=== PATIENT | male | born 2000 | race Caucasian/White ===

== ENCOUNTER 2018-04-18 17:40 | Emergency (ER) | payer OTHER, MEDICAID, SELFPAY ==
[2018-04-18 17:42] VITALS: BP 163/114; PULSE 131; RESP 18; TEMP 36.1; O2SAT 98; BMI 61.3
== END 2018-04-18 19:20 | disposition left against medical advice (07) ==
LOC: ED 19:50
PROVIDERS: Emergency Provider Emergency Medicine; Family Provider Pediatrics; PCP Family Medicine
DX: R69 Illness, unspecified (principal); Z53.21 Procedure and treatment not carried out due to patient leaving prior to being seen by health care provider

== ENCOUNTER 2022-06-18 16:34 | Emergency (ER) | payer MEDICAID, SELFPAY ==
[2022-06-18 16:36] VITALS: BP 149/104; PULSE 81; RESP 18; TEMP 36.4; BMI 58.6
[2022-06-18 16:39] VITALS: BP 149/104; PULSE 81; RESP 18; TEMP 36.4
--- NOTE | 2022-06-18 16:47 | CT_ITS ---
STUDY: CT ABDOMEN AND PELVIS WITH CONTRAST ENHANCEMENT OF 1713 HOURS ON 06/18/2022 REASON FOR EXAM: 21-year-old male with abdominal pain. RADIATION DOSAGE (If Supplied By Facility): CTDIvol = ( 19.44 ) mGy, DLP = ( 1901.22 ) mGycm. TECHNIQUE: Transaxial images were obtained from the dome of the diaphragm to the symphysis pubis without oral contrast. 100 mL of Isovue-300 were administered intravenously for this study. Sagittal and coronal images were reconstructed. Individualized dose optimization techniques were used for this CT. COMPARISON: None. FINDINGS: The visualized lung bases are unremarkable. Normal-sized heart for a 21-year-old. Obesity. Mild hepatomegaly with mild diffuse fatty infiltration. Normal gallbladder and extrahepatic biliary system. No cholelithiasis or cholecystitis. Normal spleen. Normal pancreas; no pancreatitis or pancreatic mass lesions.. 1.9 cm left adrenal cyst. No adrenal solid mass lesions. Normal kidneys without obstructive uropathy. No pyelonephritis. Normal visualized stomach. Normal small intestine. No constipation. No diverticulitis, colitis, obstruction. Poorly visualized, but normal-appearing appendix. No secondary findings of an appendicitis. Appendix is best visualized on coronal images 36 and 37. Normal abdominal aorta. Normal inferior vena cava. Normal retroperitoneum. No hernias or abscesses. Normal urinary bladder. Normal abdominal wall. Normal osseous structures. CT/Abdomen/Pelvis W IV Cont ONLY IMPRESSION: 1. Mild hepatomegaly with mild diffuse fatty infiltration. 2. No cholelithiasis or cholecystitis. No pancreatitis or pancreatic mass lesions. 3. Presence of a 1.9 cm left adrenal cysts. No adrenal solid mass lesions. 4. Normal kidneys without obstructive uropathy. Normal bladder. 5. No appendicitis, diverticulitis, colitis, intestinal obstruction. No constipation. 6. No hernias or abscesses. 7. Obesity. 8. No other abnormalities. Electronically Signed: Steven Sidhu MD at 17:41 EDT ,
--- NOTE | 2022-06-18 16:48 | EDS_ITS ---
HPI History of Present Illness Chief Complaint: Abd Pain Narrative Narrative: Patient presents with lower quadrant abdominal pain that started earlier today. He has no anorexia No nausea or vomiting he has no constipation. He has no urinary symptoms or testicular pain. No recent fevers or chills. PFSH PFSH Home Medications dicyclomine 20 mg tablet 20 mg PO BID #14 tabs 06/18/22 [Rx Last Taken Unknown] Allergy/AdvReac Type Severity Reaction Status Date / Time No Known Allergies Allergy Verified 04/18/18 17:43 Surgical History (Updated 06/18/22 @ 16:44 by Mackenzie Blackburn) History of ankle surgery History of tonsillectomy Social History Smoking Status: Never smoker ROS ROS ED ROS Narrative Past medical history: None Medications: None Social history: Noncontributory Review of systems: All systems negative except as indicated General: No fever Eyes: No visual changes ENT: No upper airway congestion, normal voice Neck: No neck pain Cardiovascular: No chest pain Respiratory: No shortness of breath or cough Gastrointestinal: Abdominal pain as in HPI Genitourinary: No dysuria Musculoskeletal: Denies myalgias no difficulty with ambulation Skin: No rash Neurological: No memory loss, confusion or any focal weakness Psych: No recent behavioral changes Hematologic: No easy bleeding or easy bruising EXAM Physical Exam Narrative Exam Narrative: Physical exam General: Well nourished, Well developed, he appears relatively comfortable Head: Normocephalic, Atraumatic Eyes: Conjunctiva not pale ENT: Moist mucous membranes Neck: Supple, Nontender, No lymphadenopathy Cardiovascular: Regular rate, Regular rhythm Respiratory: No distress, CTA bilaterally Abdomen: Soft, right lower quadrant abdominal pain, the abdomen is obese I am not sure if the pain is at McBurney's but it is around that region. There is no guarding or rebound. Back: Nontender, Normal Inspection. Negative for: CVA tenderness Extremities: Nontender, No edema Skin: Normal color, No rash Neurological: Alert, Normal Strength, Normal Sensation Psychological: Normal affect Const Vital Signs: 06/18/22 16:36 06/18/22 16:39 Temperature 97.6 F L 97.6 F L Temperature Source Temporal Temporal Pulse Rate 81 81 Respiratory Rate 18 18 Blood Pressure 149/104 H 149/104 H Blood Pressure Mean 119 119 MDM MDM MDM Narrative Medical decision making narrative: Patient has an unremarkable emergency department work-up. CT is normal. He will be reassured discharged home with Angel. Lab Data Labs: Laboratory Results - last 24 hr 06/18/22 06/18/22 06/18/22 16:55 16:55 17:05 WBC 13.5 H RBC 5.03 Hgb 13.9 Hct 42.8 MCV 85.1 MCH 27.6 MCHC 32.5 RDW Std Deviation 40.5 RDW Coeff of Som 13.2 Plt Count 353 MPV 10.1 Immature Gran % (Auto) 0.700 Neut % (Auto) 78.7 H Lymph % (Auto) 12.9 L [place] % (Auto) 7.2 Eos % (Auto) 0.2 Baso % (Auto) 0.3 Absolute Neuts (auto) 10.6 H Absolute Lymphs (auto) 1.74 Nucleated RBC % 0 Sodium 141 Potassium 4.0 Chloride 105 Carbon Dioxide 28.0 Anion Gap 8 BUN 14 Creatinine 0.90 Estim Creat Clear Calc 127.65 Est GFR (MDRD) Af Amer 134 Est GFR (MDRD) Non-Af 111 BUN/Creatinine Ratio 15.6 Glucose 110 H Calcium 9.2 Total Bilirubin 0.70 AST 13 L ALT 21 Alkaline Phosphatase 91 Total Protein 7.4 Albumin 3.7 Globulin 3.7 Albumin/Globulin Ratio 1.0 Lipase 82 Urine Color Yellow Urine Clarity Sl. Cloudy Urine pH 7.0 Ur Specific [place] 1.010 Urine Protein 15 H Urine Glucose (UA) Normal Urine Ketones Negative Urine Occult Blood 50 H Urine Nitrite Negative Urine Bilirubin Negative Urine Urobilinogen Normal Ur Leukocyte Esterase 100 H Urine RBC 0-5 SEEN Urine WBC 10-25 SEEN Ur Squamous Epith Cells 0-5 SEEN Urine Bacteria 0 SEEN Urine Mucus 0 SEEN Radiography Diagnostic Testing: Clinical Impression(s) from Imaging Studies Abdomen/Pelvis CT 06/18/22 16:47 IMPRESSION: 1. Mild hepatomegaly with mild diffuse fatty infiltration. 2. No cholelithiasis or cholecystitis. No pancreatitis or pancreatic mass lesions. 3. Presence of a 1.9 cm left adrenal cysts. No adrenal solid mass lesions. 4. Normal kidneys without obstructive uropathy. Normal bladder. 5. No appendicitis, diverticulitis, colitis, intestinal obstruction. No constipation. 6. No hernias or abscesses. 7. Obesity. 8. No other abnormalities. Electronically Signed: Steven Sidhu MD at 17:41 EDT , Discharge Plan Triage Chief Complaint: Abd Pain ED Provider: Rajinder Elmore Dx/Rx/DC Orders Clinical Impression: Abdominal pain, Acute right lower quadrant pain Instructions: Abdominal Pain Prescriptions: New dicyclomine 20 mg tablet 20 mg PO BID Qty: 14 0RF Primary Care Provider: Antwan Arredondo Referrals: Antwan Arredondo MD [Primary Care Provider] - 1 Day Disposition Disposition: Home, Self Care
[2022-06-18 17:01] LABS: Absolute Lymphocyte Count 1.74 X10^3/uL (0.83-4.51); Absolute Neutrophil Count 10.6 X10^3/uL (2.0-7.7); Basophil# 0.04 X10^3/uL; Basophil% 0.3 % (0-1); Eosinophil# 0.03 X10^3/uL; Eosinophils% 0.2 % (0-5); Hematocrit 42.8 % (40-54); Hemoglobin 13.9 g/dL (13.0-16.5); Lymphocyte # 1.74 X10^3/ul (0.83-4.51); Lymphocyte % 12.9 % (19-41); Mean Corp Hgb Conc 32.5 g/dL (32-36); Mean Corpuscular Hgb 27.6 pg (27.0-32.0); Mean Corpuscular Volume 85.1 fL (80-94); Mean Platelet Vol. 10.1 fl (6.2-12.0); Monocyte# 0.98 X10^3/uL; Monocyte% 7.2 % (0-10); NRBC Flagged by Analyzer 0 % (0-5); Neutrophil # 10.63 X10^3/uL (2.7-7.7); Neutrophil % 78.7 % (47-70); Platelet Count 353 K/mm3 (150-450); RBC Distribution Width CV 13.2 % (11.6-14.6); RBC Distribution Width SD 40.5 fl (35.1-43.9); Red Blood Count 5.03 M/mm3 (4.6-6.2); White Blood Count 13.5 K/mm3 (4.4-11.0)
[2022-06-18 17:18] LABS: AST(SGOT) 13 U/L (15-37); Alanine Aminotransfer ALT/SGPT 21 U/L (16-61); Albumin, Serum 3.7 g/dL (3.2-5.0); Alkaline Phosphatase 91 U/L (45-117); Anion Gap 8 (5-15); BUN 14 mg/dL (7-18); BUN/Creat Ratio 15.6 RATIO (10-20); Calcium,Total 9.2 mg/dL (8.5-10.1); Chloride 105 mmol/L (98-107); EST Glomerular Filtration Rate 111 mL/min (>60); Est Glom Filt Rate - Afr Amer 134 mL/min (>60); Estimated Creatinine Clearance 127.65 ml/min; Globulin 3.7 g/dL (2.2-4.2); Glucose 110 mg/dL (74-106); Lipase 82 U/L (73-393); Protein, Total 7.4 g/dL (6.4-8.2); Sodium Level 141 mmol/L (136-145)
[2022-06-18 18:10] LABS: Bacteria 0 SEEN /hpf (None Seen); Mucous, Urine 0 SEEN /hpf (<or=2+)
[2022-06-18 18:12] LABS: Color, Urine Yellow (Yellow); Glucose, Dipstick Normal (Normal); Ketone-Dipstick Negative (Negative); Leukocyte Esterase-Dipstick 100 /ul (Negative); Nitrite-Dipstick Negative (Negative); Occult Blood-Urine 50 /ul (Negative); Protein-Dipstick 15 mg/dl (Negative); Urine Bilirubin Dipstick Negative (Negative); Urine Clarity Sl. Cloudy (Clear); Urine Urobilinogen Normal (Normal)
[2022-06-18 18:32] LABS: Red Blood Cells-Urine 0-5 SEEN /hpf (0-5); Squamous Epithelial Cells - UA 0-5 SEEN /hpf (0-5); White Blood Cells 10-25 SEEN /hpf (0-5)
[2022-06-18] MEDS: Ondansetron 4 MG/2 ML Vial IV (19:17)
[2022-06-18 19:21] VITALS: BP 138/89; PULSE 76; RESP 18
== END 2022-06-18 19:23 | disposition home or self-care (01) ==
PROVIDERS: Emergency Provider Emergency Medicine; PCP Family Medicine; Visit Provider Emergency Medicine
DX: R10.31 Right lower quadrant pain (principal)
CPT/HCPCS: 74177; 80053; 81001; 83690; 85025; 96374; 99283; Q9967; A4216; J2405